=== PATIENT | male | born 1945 | race Caucasian/White ===

== ENCOUNTER → 2016-09-25 | Outpatient (CLI) | payer OTHER ==
[~2016-09-25] MED LIST: ASPIR 8181 MG PO; ASTEPRO205.5 MCG/ NASAL; BENADRYL25 MG PO; FISH OIL 1,0001 EAC8 PO; LIPITOR40 MG PO; MOBIC15 MG PO; PERCOCET 7.5-31 EACH PO; RESTASIS1 EACH OPHTHALMIC; VITAMIN D31000 UNI2 PO
== END ==
LOC: MRI 15:20
DX: M65.871 Other synovitis and tenosynovitis, right ankle and foot (principal); M25.571 Pain in right ankle and joints of right foot

== ENCOUNTER → 2019-10-28 | Outpatient (CLI) | payer OTHER | LOC: SJCVCIMAG 15:46 → SJCVC 15:46 | PROVIDERS: ATTEND Internal Medicine Cardiovascular Disease | DX: I65.23 Occlusion and stenosis of bilateral carotid arteries (principal); E78.00 Pure hypercholesterolemia, unspecified; Z82.49 Family history of ischemic heart disease and other diseases of the circulatory system; Z79.899 Other long term (current) drug therapy; Z87.891 Personal history of nicotine dependence ==

== ENCOUNTER → 2019-10-29 | Outpatient (CLI) | payer OTHER | LOC: CAT 13:28 | PROVIDERS: ATTEND Internal Medicine Cardiovascular Disease | DX: Z13.6 Encounter for screening for cardiovascular disorders (principal); I25.10 Atherosclerotic heart disease of native coronary artery without angina pectoris; E78.00 Pure hypercholesterolemia, unspecified ==

== ENCOUNTER → 2020-11-16 | Outpatient (CLI) | payer OTHER | LOC: SJCVCIMAG 09-28 13:42 | PROVIDERS: ATTEND Internal Medicine Cardiovascular Disease | DX: I07.1 Rheumatic tricuspid insufficiency (principal); R93.1 Abnormal findings on diagnostic imaging of heart and coronary circulation; E78.5 Hyperlipidemia, unspecified ==